=== PATIENT | female | born 1990 | race Caucasian/White ===

== ENCOUNTER 2016-12-17 01:23 | Inpatient (IN) | payer OTHER ==
[~2016-12-17] VITALS: Ht 170.2 cm; Wt 75.7 kg
[2016-12-17] MEDS ORDERED: Oxytocin 30 Units/500 mL LR 30 UNITS in IV Premix 1 EACH IV PRN ×3 (01:45→10:10)
[2016-12-17] MEDS ORDERED: Methylergonovine 0.2 mg/mL Inj IM PRN ×2 (01:45→10:10)
[2016-12-17] MEDS ORDERED: Carboprost 250 mCg/mL Inj IM PRN ×2 (01:45→10:10)
[2016-12-17] MEDS ORDERED: Hemorrhage Kit, Post Partum XX ONE ×2 (01:45→10:10)
[2016-12-17] MEDS ORDERED: Oxytocin 10 Unit/mL Inj IM PRN ×2 (01:45→10:10)
[2016-12-17] MEDS ORDERED: Sodium Chloride LOK Flush 10 mL Syringe IVFLUSH PRN (01:45)
[2016-12-17 02:09] LABS: Mean Corpuscular Hemoglobin 30.8 pg (27.0-35.0); Mean Corpuscular Volume 88.9 fL (81-100)
--- NOTE | 2016-12-17 05:15 | PCM.HPANE ---
Patient Data Surgeon Admitting Provider:Dionte Velez MD Attending Provider:Dionte Velez MD Primary Care Physician:Alonzo Other Provider:Roger Abdi Anesthesia Reason for Visit TERM TERM Ht/WT & BMI Body Mass Index Allergies Coded Allergies: Sulfa (Sulfonamide Antibiotics) (Verified Allergy, Intermediate, HIVES, ) History Smoking Status: Never Smoker Stop/Bang Risk Assessment Category Category 1A: Patient has history of documented sleep apnea, and HAS NOT received any narcotic, sedative or anesthesia administration during this stay. Category 1B: Patient has history of documented sleep apnea, and HAS received any narcotic , sedative or anesthesia administration during this stay Category 2: Patient has SUSPECTED Obstructive Sleep Apnea, and HAS received any narcotic , sedative or anesthesia administration during this stay. Category 3: Patient has SUSPECTED Obstructive Sleep Apnea and HAS NOT received narcotic, sedative or anesthesia administration during this stay. Category 4: Outpatient in Procedural Areas with known sleep apnea or who screen positive for High Risk via the STOP/BANG questionnaire. Exam Exam General Appearance: Alert, Oriented X3, Cooperative HEENT/AIRWAY: MP 2, Neck Movement (from), Mouth Opening (wnl) Lungs: Normal Air Movement Meds/Labs/Diagnostics Labs Test 12/17/16 01:45 White Blood Count 13.1th/mm3 (3.8-10.1) Red Blood Count 4.42mil/mm3 (3.90-5.20) Hemoglobin 13.6g/dL (12.0-15.6) Hematocrit 39.3% (35.0-46.0) Mean Corpuscular Volume 88.9fL (81-100) Mean Corpuscular Hemoglobin 30.8pg (27.0-35.0) Mean Corpuscular Hemoglobin Concent 34.6% (32.0-37.0) Red Cell Distribution Width 11.7% (12.3-15.4) Platelet Count 110bil/L (150-400) Plan Impression Patient chart reviewed, patient interviewed and anesthestic plan with risks, benefits, and alternatives discussed, and informed consent obtained. ASA Physical Status: ASA2 Mod Systemic Disease Anesthetic Plan: Epidural Bene/Risks/Altern/Consents: Yes HP Complete Prior to Induction: Yes Jose E Olivas MD Dec 17, 2016 05:15
[2016-12-17] MEDS ORDERED: fentaNYL 2 mCg/mL-Bupivicaine 0.125% 100 mL Premix EPIDURAL ONE (05:39)
[2016-12-17] MEDS: Lactated Ringer's 1,000 ML IV PRN ×2 (05:58→06:12)
--- NOTE | 2016-12-17 06:47 | PCM.ANEP1 ---
Post Anesthesia Phase 1 PACU Phase 1 Assessment Anesthetic Administered: Epidural Level of Alertness: Awake, talking ARRIAGA's with Equal Strength: Yes Pain: Yes Nausea or Vomiting: No Oxygen Delivery: Room Air Lungs: Normal Air Movement Jose E Olivas MD Dec 17, 2016 06:47
[2016-12-17] MEDS ORDERED: Lactated Ringer's 1,000 ML IV SCH (08:04)
[2016-12-17] MEDS: Lactated Ringer's 1,000 ML IV SCH ×2 (10:06→18:06)
[2016-12-17] MEDS ORDERED: TdaP Vaccine 0.5 mL Inj IM ONE (10:10)
[2016-12-17] MEDS ORDERED: LANOlin HPA 7 Gm Ointment TOPICAL PRN (10:10)
[2016-12-17] MEDS ORDERED: HYDROcodone-APAP 5-325 mg Tablet PO PRN (10:10)
[2016-12-17] MEDS ORDERED: Benzocaine (Dermoplast) 20% 60 Gm Spray TOPICAL PRN (10:10)
[2016-12-17] MEDS ORDERED: Influenza (Adult) Vaccine 0.5 mL Syringe IM ONE (10:10)
[2016-12-17] MEDS ORDERED: Measles-Mumps-Rubella Vaccine 0.5 mL Inj SUBQ ONE (10:10)
[2016-12-17] MEDS: Witch Hazel-Glycerin Pads TOPICAL PRN (10:42)
--- NOTE | 2016-12-17 17:33 | PCM.ANEP2 ---
Post Anesthesia Evaluation ASA/CMS Post Anesthesia VS in Patient's Normal Range?: Yes Resp Stable; Airway Patent?: Yes CV Function & Hydration Stable: Yes Mental Status Recovered?: Yes Pain control Satisfactory?: Yes N/V Control Satisfactory?: Yes Roshan Matthews MD Dec 17, 2016 17:33
[2016-12-18 07:30] LABS: Mean Corpuscular Hemoglobin 31.1 pg (27.0-35.0); Mean Corpuscular Volume 91.1 fL (81-100)
[2016-12-18] MEDS: Witch Hazel-Glycerin Pads TOPICAL PRN (13:48)
[2016-12-18] MEDS: Lactated Ringer's 1,000 ML IV SCH (15:48)
--- NOTE | 2016-12-18 17:15 | PCM.DIOB ---
Obstetrical Disch Instruction Dates of Hospitalization Date of Hospital Admission Dec 17, 2016 at 01:42 Providers Admitting Physician: Dionte Velez MD Primary Care Physician: Nopellie Attending Physician: Dionte Velez MD Discharge Diagnosis Problems: (1) Status: Acute ICD Code: Z33.1 Diet Discharge Diet: No restrictions Activity Discharge Activity-General: Pelvic Rest for 6 weeks Dressing and Incisional Care Hygiene: May shower, Perineal care, Sitz bath, Dermoplast spray, Witch Disha pads, Ice Follow Up Plan Follow-up appointment: Weeks (Follow up in 6 weeks for appointment with Dr. Velez.) Call your provider for: Fever or Chills, Shortness of breath, Heavy vaginal bleeding, Red painful breasts Dionte Velez MD Dec 18, 2016 17:15
[2016-12-18] MEDS ORDERED: IBUP-1827 PO (17:16)
[2016-12-18 17:39] VITALS: BP 114/55; PULSE 82; RESP 16
--- NOTE | 2016-12-19 03:18 | PROG NOTE ---
[address] [address] PROGRESS NOTE PATIENT: HAJA ELDER : 1990 MR#: [id number] ADMIT: 12/17/2016 JOB ID: [id number] [facility] NOTE: DATE: 12/17/2016 SUBJECTIVE: The patient is a 26-year-old, G1, P0, AB 0 woman followed prenatally by Dr. Velez at [facility], see record. course has been relatively uncomplicated. Note Rh negative status, received RhoGAM at 28 weeks along. The patient experienced prodromal labor with some trips in and out of the [facility] for a couple of days before finally admission early on December 17, 2016 at 5 cm dilatation. This admission was following spontaneous rupture of membranes that had occurred at 0130 hour on the day of admission. The patient was admitted with expectant management for vaginal . PHYSICAL EXAMINATION: On admission, afebrile. Vital signs acceptable. Neck: No thyromegaly. Lungs: Clear to auscultation and percussion. Heart: Regular in rate and rhythm. Abdomen: Fundal height consistent with term. Positive heartbeat. Vertex presentation. Pelvic examination: Initial exam, 5 cm dilatation, ruptured membranes. IMPRESSION: 1. Term . 2. Spontaneous rupture of membranes. 3. Moderate meconium. 4. Labor. 5. Negative group B strep. 6. Rh negative status, having received RhoGAM injection during . 7. Rubella immune status. 8. Up to date with Tdap and flu vaccinations during . 9. Prior breast biopsy, right (2014). 10. Depression history, used antidepressant briefly many years ago. 11. History of migraines. 12. SULFA allergy. 13. Family history of hypertension (grandparents), diabetes (aunts, uncle, grandfather), and asthma (sister, mother). PLAN: The patient was admitted to [facility] early in the morning of December 17, 2016 with ruptured membranes (meconium noted), labor, at term, anticipating vaginal delivery.
--- NOTE | 2016-12-19 03:24 | PROG NOTE ---
[address] [address] PROGRESS NOTE PATIENT: HAJA ELDER : 1990 MR#: [id number] ADMIT: 12/17/2016 JOB ID: [id number] [facility] NOTE: DATE: 12/17/2016 TIME: 10:30 a.m. SUBJECTIVE: The patient was admitted to [facility] at term with ruptured membranes and labor. Labor progressed with gradual cervical dilatation, ultimately reaching complete cervical dilatation over time, and with epidural provided for pain management. Note that heart tracing was acceptable, and meconium passage was noted and railway station manager asked to attend delivery. Once completely dilated, patient pushed very well over a very short time before delivery occurred. Once , head then delivered, followed by the shoulders, body and extremities. Baby was active and crying and vigorous in my arms. Sports Photographer and I felt that baby could be passed to mother which was accomplished. After a minute of delay umbilical cord was clamped and cut and cord blood was then obtained for routine studies. Betadine solution was used to cleanse the vulvovaginal region and there was a small midline second degree perineal laceration noted, easily repaired with 3-0 chromic suture in deep and then more superficial (subcuticular) running layers. There was no hematoma formation and skin edges were well approximated. Note that placenta and membranes, then delivered, intact. There was significant blood behind the placenta and membranes, with total blood loss in the 300-350 cc range. Final Betadine solution cleansing and examinations failed to demonstrate any problems, instrument needle and sponge counts were all found to be correct, and it certainly is anticipated that mother and baby will do very well during the timeframe.
--- NOTE | 2016-12-20 00:10 | DIS ---
[address] [address] DISCHARGE SUMMARY PATIENT: HAJA ELDER : 1990 MR#: [id number] ADMIT: 12/17/2016 JOB ID: [id number] DIS: 12/18/2016 DISCHARGE DIAGNOSIS: Term , delivered. PROCEDURES PERFORMED DURING HOSPITALIZATION: 1. Vaginal delivery. 2. Perineal laceration repair. 3. Epidural anesthesia. HOSPITAL COURSE: The patient was admitted to [facility] and ultimately underwent procedures as described. During the timeframe, the patient did very well, with stable vitals, afebrile, with reasonable bleeding and pain management, voiding and ambulating, and handling baby well. Note, vital signs remained stable and she was afebrile. Hemoglobin was 9.8, , the patient was not dizzy. The patient requested discharge to home on the first day, i.e., on December 18, 2016. DISCHARGE PROGRAM: The patient was discharged home on December 18, 2016. She is to call if she is experiencing any persistent heavy bleeding or high fever or other problem. Otherwise, she will return to the office in six weeks for checkup. She will observe pelvic rest for six weeks. DISCHARGE MEDICATIONS: Ibuprofen for which prescriptions is given, and then she should also continue vitamin daily, and she has a supply at home. KRISTINA
== END 2016-12-18 17:50 | disposition home or self-care (01) | DRG 775 ==
LOC: FBCO 01:23 → FBC 01:42
PROVIDERS: ADMIT Obstetrics & Gynecology; ATTEND Obstetrics & Gynecology
PROC: 10E0XZZ Delivery of Products of Conception, External Approach (ICD-10-PCS; principal; 2016-12-17)
PROC: 0KQM0ZZ Repair Perineum Muscle, Open Approach (ICD-10-PCS; 2016-12-17)
DX: O70.1 Second degree perineal laceration during delivery (principal); Z37.0 Single live birth